=== PATIENT | male | born 1960 | race Hispanic/Latino ===

== ENCOUNTER 2019-02-21 21:59 | Inpatient (IN) | payer BC ==
--- NOTE | 2019-02-21 22:42 | Emergency Department Report ---
ED Neuro Deficit HPI - General Chief Complaint: Weakness Stated Complaint: GENERAL WEAKNESS Time Seen by Provider: 02/21/19 22:35 Source: patient, EMS Mode of arrival: Stretcher Limitations: No Limitations - History of Present Illness Initial Comments: Patient is a 58-year-old male that presents emergency room with complaints of weakness. Patient states he was unable to move his right side. Patient states he was not able to move his right arm and right leg for approximately 5 minutes. Patient states prior to the symptoms he felt weak and lightheaded. Patient states his gait was unsteady. Patient states at this time is able to move everything and his symptoms have all resolved. 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 -: Sudden Location: right arm, right leg Presenting Symptoms: Present: Weak/Paralyzed One Side History of same: No Place: work Severity: severe Quality: improving Improves With: time, rest Worsens With: none On Anticoagulants: No Context: sudden onset Associated Symptoms: weakness. denies: confusion, chest pain, cough, diaphoresis, fever/chills, headaches, loss of appetite, malise, nausea/vomiting, vertigo, seizures, shortness of breath, syncope Treatments Prior to Arrival: none - Related Data Allergies/Adverse Reactions: Allergies Allergy/AdvReac Type Severity Reaction Status Date / Time No Known Allergies Allergy Unverified 02/21/19 22:41 ED Review of Systems ROS: Stated complaint: GENERAL WEAKNESS Other details as noted in HPI Constitutional: denies: chills, fever Eyes: denies: eye pain, eye discharge, vision change ENT: denies: ear pain, throat pain Respiratory: denies: cough, shortness of breath, wheezing Cardiovascular: denies: chest pain, palpitations Endocrine: no symptoms reported Gastrointestinal: denies: abdominal pain, nausea, diarrhea Genitourinary: denies: urgency, dysuria Musculoskeletal: denies: back pain, joint swelling, arthralgia Skin: denies: rash, lesions Neurological: weakness, abnormal gait. denies: headache, paresthesias Psychiatric: denies: anxiety, depression Hematological/Lymphatic: denies: easy bleeding, easy bruising ED Past Medical Hx - Past Medical History Previous Medical History?: Yes Hx Hypertension: Yes - Surgical History Past Surgical History?: Yes Additional Surgical History: plastic surgery, amputation of middle nail - Family History Family history: no significant - Social History Smoking Status: Current Every Day Smoker Substance Use Type: None ED Neuro Physical Exam - General Limitations: No Limitations General appearance: alert, in no apparent distress Suspected Stroke: No - Head Head exam: Present: atraumatic, normocephalic - Eye Eye exam: Present: normal appearance Pupils: Present: unequal, other (left pupil 5 and right pupil 2) - ENT ENT exam: Present: mucous membranes moist - Neck Neck exam: Present: normal inspection - Respiratory Respiratory exam: Present: normal lung sounds bilaterally. Absent: respiratory distress - Cardiovascular Cardiovascular Exam: Present: regular rate, normal rhythm. Absent: systolic murmur, diastolic murmur, rubs, gallop - GI/Abdominal GI/Abdominal exam: Present: soft, normal bowel sounds - Rectal Rectal exam: Present: deferred - Extremities Exam Extremities exam: Present: normal inspection - Back Exam Back exam: Present: normal inspection - Neurological Exam Neurological exam: Present: alert, oriented X3 - Psychiatric Psychiatric exam: Present: normal affect, normal mood - Skin Skin exam: Present: warm, dry, intact, normal color. Absent: rash ED Course Vital Signs 02/21/19 02/21/19 22:10 22:20 Temperature 98.0 F 98.0 F Pulse Rate 75 75 Respiratory 12 12 Rate Blood Pressure 128/89 Blood Pressure 128/89 [Left] O2 Sat by Pulse 99 99 Oximetry - Reevaluation(s) Reevaluation #1: I discussed all results with patient. Patient is stable for discharge. Patient will be discharged home. Patient agrees with plan of care. Patient given discharge instructions. Patient voiced understanding discharge instructions. 02/22/19 01:38 - Consultations Consultation #1: I discussed case with neurologist, Dr Bell. Neurologist agrees with CT of the head along with emergent CTA of the head and neck due to the patient's symptomatology. The neurologist credit collections specialist recommends admission for further evaluation. 02/21/19 22:43 Consultation #2: Hospitalist Consult for admission. Hospitalist to admit the patient. 02/22/19 01:40 - Lab Data Result diagrams: 02/21/19 23:29 02/21/19 23:29 Lab Results 02/21/19 02/21/19 02/21/19 Range/Units 23:00 23:29 23:29 WBC 9.2 (4.5-11.0) K/mm3 RBC 5.37 H (3.65-5.03) M/mm3 Hgb 16.4 H (11.8-15.2) gm/dl Hct 48.0 H (35.5-45.6) % MCV 89 (84-94) fl MCH 31 (28-32) pg MCHC 34 (32-34) % RDW 14.3 (13.2-15.2) % Plt Count 288 (140-440) K/mm3 Lymph % (Auto) 20.7 (13.4-35.0) % [place] % (Auto) 5.7 (0.0-7.3) % Eos % (Auto) 1.8 (0.0-4.3) % Baso % (Auto) 0.5 (0.0-1.8) % Lymph # 1.9 (1.2-5.4) K/mm3 [place] # 0.5 (0.0-0.8) K/mm3 Eos # 0.2 (0.0-0.4) K/mm3 Baso # 0.0 (0.0-0.1) K/mm3 Seg Neutrophils % 71.3 H (40.0-70.0) % Seg Neutrophils # 6.6 (1.8-7.7) K/mm3 Sodium 138 (137-145) mmol/L Potassium 4.1 (3.6-5.0) mmol/L Chloride 99.3 (98-107) mmol/L Carbon Dioxide 25 (22-30) mmol/L Anion Gap 18 mmol/L BUN 19 (9-20) mg/dL Creatinine 1.2 (0.8-1.5) mg/dL Estimated GFR > 60 ml/min BUN/Creatinine Ratio 16 % Glucose 125 H (75-100) mg/dL Calcium 9.4 (8.4-10.2) mg/dL Total Bilirubin 0.30 (0.1-1.2) mg/dL AST 11 (5-40) units/L ALT 12 (7-56) units/L Alkaline Phosphatase 64 (35-129) units/L Total Creatine Kinase (55-170) units/L Troponin T (0.00-0.029) ng/mL Total Protein 7.3 (6.3-8.2) g/dL Albumin 4.1 (3.9-5) g/dL Albumin/Globulin Ratio 1.3 % Urine Color Yellow (Yellow) Urine Turbidity Clear (Clear) Urine pH 5.0 (5.0-7.0) Ur Specific [place] 1.024 (1.003-1.030) Urine Protein <15 mg/dl (Negative) mg/dL Urine Glucose (UA) Neg (Negative) mg/dL Urine Ketones Neg (Negative) mg/dL Urine Blood Lg (Negative) Urine Nitrite Neg (Negative) Urine Bilirubin Neg (Negative) Urine Urobilinogen 4.0 (<2.0) mg/dL Ur Leukocyte Esterase Neg (Negative) Urine WBC (Auto) 2.0 (0.0-6.0) /HPF Urine RBC (Auto) 8.0 (0.0-6.0) /HPF Urine Mucus 2+ /HPF 02/21/19 Range/Units 23:29 WBC (4.5-11.0) K/mm3 RBC (3.65-5.03) M/mm3 Hgb (11.8-15.2) gm/dl Hct (35.5-45.6) % MCV (84-94) fl MCH (28-32) pg MCHC (32-34) % RDW (13.2-15.2) % Plt Count (140-440) K/mm3 Lymph % (Auto) (13.4-35.0) % [place] % (Auto) (0.0-7.3) % Eos % (Auto) (0.0-4.3) % Baso % (Auto) (0.0-1.8) % Lymph # (1.2-5.4) K/mm3 [place] # (0.0-0.8) K/mm3 Eos # (0.0-0.4) K/mm3 Baso # (0.0-0.1) K/mm3 Seg Neutrophils % (40.0-70.0) % Seg Neutrophils # (1.8-7.7) K/mm3 Sodium (137-145) mmol/L Potassium (3.6-5.0) mmol/L Chloride (98-107) mmol/L Carbon Dioxide (22-30) mmol/L Anion Gap mmol/L BUN (9-20) mg/dL Creatinine (0.8-1.5) mg/dL Estimated GFR ml/min BUN/Creatinine Ratio % Glucose (75-100) mg/dL Calcium (8.4-10.2) mg/dL Total Bilirubin (0.1-1.2) mg/dL AST (5-40) units/L ALT (7-56) units/L Alkaline Phosphatase (35-129) units/L Total Creatine Kinase 89 (55-170) units/L Troponin T < 0.010 (0.00-0.029) ng/mL Total Protein (6.3-8.2) g/dL Albumin (3.9-5) g/dL Albumin/Globulin Ratio % Urine Color (Yellow) Urine Turbidity (Clear) Urine pH (5.0-7.0) Ur Specific [place] (1.003-1.030) Urine Protein (Negative) mg/dL Urine Glucose (UA) (Negative) mg/dL Urine Ketones (Negative) mg/dL Urine Blood (Negative) Urine Nitrite (Negative) Urine Bilirubin (Negative) Urine Urobilinogen (<2.0) mg/dL Ur Leukocyte Esterase (Negative) Urine WBC (Auto) (0.0-6.0) /HPF Urine RBC (Auto) (0.0-6.0) /HPF Urine Mucus /HPF - EKG Data -: EKG Interpreted by Id EKG shows normal: sinus rhythm, axis, intervals, QRS complexes, ST-T waves Rate: normal - Radiology Data Radiology results: report reviewed CT HEAD WITHOUT CONTRAST INDICATION: Right-sided weakness , dizziness, abnormal gait TECHNIQUE: All CT scans at this location are performed using CT dose reduction for ALARA by means of automated exposure control. COMPARISON: None available. FINDINGS: BRAIN: No hemorrhage or mass effect are seen. No evidence of acute infarction is noted. Focal small hypodensity in the area of the genu of the right internal capsule appears old and likely is a prior lacunar infarction. ORBITS: Left orbital bony surgical changes are seen. SOFT TISSUES OF HEAD: Normal. CALVARIUM: Left facial bony surgical changes are noted. No obvious acute bony abnormalities are seen. VISUALIZED PARANASAL SINUSES AND MASTOID AIR CELLS: Left maxillary sinus shows old deformity. Mild mucosal thickening is seen in the ethmoid air cells. Left frontal sinus is poorly developed. No air- fluid levels are seen. ADDITIONAL FINDINGS: None. IMPRESSION: No acute intracranial abnormality. NECK CT ANGIOGRAM 02/21/2019 HISTORY: Dizziness. FINDINGS: Contrast-enhanced CT angiographic images of the neck were obtained. In addition to the axial images, sagittal and coronal reformatted images were obtained. In ad dition, 3 plane MIP reconstructions were produced. Images were obtained and evaluated on an emergenc y basis. There is no evidence of abnormality. There is no evidence of carotid bifurcation stenosis. There is normal appearance to the carotid arteries. Vertebral artery contours are unremarkable. Visualized portions of the aortic arch are unremarkable. Patient has had prior cervical spine surgery, with fusion procedure at the C6-7 level. Soft tissue structures in the neck are unremarkable. IMPRESSION: No significant abnormality. NASCET like criteria were used in this evaluation. HEAD CT ANGIOGRAM HISTORY: Dizziness FINDINGS: Contrast-enhanced CT angiographic images of the intracranial circulation were obtained. In addition to the axial images, sagittal and coronal reformatted images were obtained. In addition, 3 plane MIP reconstructions were produced. Images were obtained and evaluated in the emergency basis. There is no evidence of vascular abnormality. There is no CT angiographic correlate for dizziness. There is normal vascular contours associated with anterior and posterior circulation vessels at the level of the [place] and skull base. Vertebrobasilar system is unremarkable. IMPRESSION: Negative exam. - Medical Decision Making Patient is a 58-year-old male that presents emergency room with complaints of right-sided paralysis, weakness, abnormal gait and dizziness. Patient has symptoms consistent with a TIA. Patient's paralysis resolved prior to arriving to the ER. Patient had a full stroke workup along with a neurology consult. Patient's labs and imaging negative. Patient will be admitted to the [facility] service for further neurologic workup and MRI evaluation. - Differential Diagnosis TIA. Weakness. Dehydration. Dizziness. Abnormal gait Critical Care Time: Yes Critical care attestation.: If time is entered above; I have spent that time in minutes in the direct care of this critically ill patient, excluding procedure time. Critical Care Time: 35 minutes ED Disposition Clinical Impression: TIA (transient ischemic attack), Right sided weakness, Abnormal gait, Dizziness Disposition: OP ADMIT IP TO THIS HOSP Is pt being admited?: Yes Does the pt Need Aspirin: No Condition: Critical Referrals: DANA COKER MD [Primary Care Provider] - 3-5 Days Time of Disposition: 01:38
--- NOTE | 2019-02-21 23:37 | Cat Scan Report ---
CT HEAD WITHOUT CONTRAST INDICATION: Right-sided weakness , dizziness, abnormal gait TECHNIQUE: All CT scans at this location are performed using CT dose reduction for ALARA by means of automated exposure control. COMPARISON: None available. FINDINGS: BRAIN: No hemorrhage or mass effect are seen. No evidence of acute infarction is noted. Focal small h ypodensity in the area of the genu of the right internal capsule appears old and likely is a prior la cunar infarction. ORBITS: Left orbital bony surgical changes are seen. SOFT TISSUES OF HEAD: Normal. CALVARIUM: Left facial bony surgical changes are noted. No obvious acute bony abnormalities are seen. VISUALIZED PARANASAL SINUSES AND MASTOID AIR CELLS: Left maxillary sinus shows old deformity. Mild mu cosal thickening is seen in the ethmoid air cells. Left frontal sinus is poorly developed. No air-flu id levels are seen. ADDITIONAL FINDINGS: None. IMPRESSION: No acute intracranial abnormality. Signer Name: Arturo Ch MD Signed: 02/21/2019 11:33 PM Workstation Name: [id number]
[2019-02-21 23:41] LABS: Basophils % (Auto) 0.5 % (0.0-1.8); Eosinophils # (Auto) 0.2 K/mm3 (0.0-0.4); Eosinophils % (Auto) 1.8 % (0.0-4.3); Hemoglobin 16.4 gm/dl (11.8-15.2); Lymphocytes # (Auto) 1.9 K/mm3 (1.2-5.4); Lymphocytes % (Auto) 20.7 % (13.4-35.0); Mean Corpuscular HGB Conc 34 % (32-34); Mean Corpuscular Volume 89 fl (84-94); Monocytes # (Auto) 0.5 K/mm3 (0.0-0.8); Monocytes % (Auto) 5.7 % (0.0-7.3); Platelet Count 288 K/mm3 (140-440); Red Blood Count 5.37 M/mm3 (3.65-5.03); Red Cell Distribution Width 14.3 % (13.2-15.2)
[2019-02-21 23:46] LABS: Bilirubin,Urine NEG (Negative); Blood,Urine LG (Negative); Color,Urine Yellow (Yellow); Mucus,Urine 2+ /HPF; Protein,Urine <15 mg/dL mg/dL (Negative)
[2019-02-21 23:59] LABS: Alanine Aminotransferase 12 units/L (7-56); Albumin 4.1 g/dL (3.9-5); BUN/Creatinine Ratio 16; Blood Urea Nitrogen 19 mg/dL (9-20); Calcium 9.4 mg/dL (8.4-10.2); Hemolysis Index 10
--- NOTE | 2019-02-22 01:00 | Cat Scan Report ---
NECK CT ANGIOGRAM 02/21/2019 HISTORY: Dizziness. FINDINGS: Contrast-enhanced CT angiographic images of the neck were obtained. In addition to the axia l images, sagittal and coronal reformatted images were obtained. In addition, 3 plane MIP reconstruct ions were produced. Images were obtained and evaluated on an emergency basis. There is no evidence of abnormality. There is no evidence of carotid bifurcation stenosis. There is normal appearance to the carotid arter ies. Vertebral artery contours are unremarkable. Visualized portions of the aortic arch are unremarkable. Patient has had prior cervical spine surgery, with fusion procedure at the C6-7 level. Soft tissue structures in the neck are unremarkable. IMPRESSION: No significant abnormality. \ NASCET like criteria were used in this evaluation. All CT scans at this location are performed using dose reduction to ALARA by means of automated expos ure control. Signer Name: Iggy Winslow MD Signed: 02/22/2019 12:55 AM Workstation Name: [id number]
--- NOTE | 2019-02-22 01:04 | Cat Scan Report ---
HEAD CT ANGIOGRAM HISTORY: Dizziness FINDINGS: Contrast-enhanced CT angiographic images of the intracranial circulation were obtained. In addition to the axial images, sagittal and coronal reformatted images were obtained. In addition, 3 p mell MIP reconstructions were produced. Images were obtained and evaluated in the emergency basis. There is no evidence of vascular abnormality. There is no CT angiographic correlate for dizziness. There is normal vascular contours associated with anterior and posterior circulation vessels at the l evel of the [place] and skull base. Vertebrobasilar system is unremarkable. IMPRESSION: Negative exam. All CT scans at this location are performed using dose reduction to ALARA by means of automated expos ure control. Signer Name: Iggy Winslow MD Signed: 02/22/2019 12:59 AM Workstation Name: [id number]
[2019-02-22] MEDS ORDERED: ZOFRAN IV PRN (02:14)
[2019-02-22] MEDS ORDERED: TYLENOL PO PRN (02:14)
--- NOTE | 2019-02-22 03:49 | XRay Report ---
CHEST 2 VIEWS 2306 INDICATION / CLINICAL INFORMATION: Weakness. COMPARISON: None available. FINDINGS: SUPPORT DEVICES: None. HEART / MEDIASTINUM: No significant abnormality. LUNGS / PLEURA: No significant pulmonary or pleural abnormality. No pneumothorax. ADDITIONAL FINDINGS: No significant additional findings. IMPRESSION: No significant acute abnormality Signer Name: Arturo Ch MD Signed: 02/22/2019 3:45 AM Workstation Name: [id number]
[2019-02-22 07:59] LABS: Creatine Kinase MB 1.3 ng/mL (0.0-4.0)
--- NOTE | 2019-02-22 09:15 | History and Physical Report ---
CHIEF COMPLAINT: Weakness. Other complaint include dizziness and unsteady gait. HISTORY OF PRESENT ILLNESS: The patient is a 58-year-old male who said he was feeling generally weak with dizziness and then developed weakness with inability to move the right upper and right lower extremity for about 5 minutes. There was also history of associated unsteady gait. By the time the patient arrived at the Emergency Room, he said that his symptoms of right-sided weakness has resolved. There was no history of chest pain, no history of shortness of breath, nausea or vomiting. Also, the patient denied history of vertigo. PAST MEDICAL HISTORY: Only pertinent for hypertension. 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 PAST SURGICAL HISTORY: Pertinent for left eye surgery and amputation of middle finger nail. FAMILY HISTORY: Noncontributory. SOCIAL HISTORY: The patient smokes cigarettes, does not use illicit drugs and it is not clear whether the patient drinks alcohol. MEDICATIONS: The patient's home medication is lisinopril, dose and frequency unknown. ALLERGIES: There are no known drug allergies. REVIEW OF SYSTEMS: CONSTITUTIONAL: There is no fever, no chills, no diaphoresis. HEENT: There is no headache or sore throat. CARDIOVASCULAR SYSTEM: There is no chest pain or orthopnea. RESPIRATORY SYSTEM: There is no shortness of breath or cough. GASTROINTESTINAL SYSTEM: There is no nausea, no vomiting, no abdominal pain, diarrhea or constipation. NEUROLOGICAL SYSTEM: Dizziness present. Unsteady gait present. Weakness of the right upper and right lower extremity noted. Generalized weakness noted. No altered mental status and no numbness. MUSCULOSKELETAL SYSTEM: There is no joint pain or swelling. DERMATOLOGICAL SYSTEM: There is no skin rash or itching. GENITOURINARY SYSTEM: There is no dysuria, hematuria, or flank pain. Rest of system review is normal. PHYSICAL EXAMINATION: GENERAL: At the time of exam, the patient was found to be alert, oriented x 3 and not in acute distress. VITAL SIGNS: Shows temperature of 98 degrees Fahrenheit, pulse of 75, respirations 12, blood pressure 128/89, O2 sat of 99% on room air. HEENT: Showed left pupil to be bigger than the right. Extraocular muscles are intact. NECK: Supple with no JVD or carotid bruit. CARDIOVASCULAR SYSTEM: Showed normal first and second heart sounds with no gallops or murmurs. RESPIRATORY SYSTEM: Showed good air entry on both sides of the lungs with no abnormal breath sounds. GASTROINTESTINAL SYSTEM: Showed abdomen to be full, soft, nontender with no organomegaly or rigidity. NEUROLOGIC: Showed no focal deficits. MUSCULOSKELETAL SYSTEM: Showed no joint swelling or tenderness. DERMATOLOGICAL SYSTEM: Showed no skin rash. GENITOURINARY SYSTEM: Showing no costovertebral angle tenderness. PERTINENT LABORATORY AND IMAGING STUDIES: The patient had CT of the head without contrast done that shows no acute intracranial abnormality. Also, the patient has CT angiogram of the head and neck done that was normal. The patient also had chest x-ray done that came back normal. LAB RESULTS: The patient's CBC showed normal white count, elevated hemoglobin of 16.4 and elevated hematocrit of 48 with CBC differential being unremarkable except for slight increase in segmented neutrophil count of 71.3%. The patient's chemistry was unremarkable. Urinalysis came back normal. DIAGNOSES: 1. Transient ischemic attack. 2. Dizziness. 3. Unsteady gait. PLAN OF CARE: 1. The patient will be admitted to telemetry. 2. The patient will have MRI of the brain without contrast done this morning and will also have bilateral carotid Doppler done this morning. 3. The patient will have 2D echo done this morning with the on-call soap tender to read. 4. The patient will have cardiac enzymes involving troponin, total CK, and CK-MB checked q. 6 hours serially x 2 levels. 5. The patient will have Neurology consult with Dr. Allen if available this morning. 6. The patient will be on daily aspirin 325 mg by mouth and will also be on Tylenol 650 mg by mouth every 4 hours for fever and headache. 7. The patient will be on Zofran 4 mg IV every 8 hours for nausea and vomiting. 8. The patient's home medication, which is lisinopril, will be started when the dose is known, starting today 02/22/2019. 9. The patient will be on low sodium diet after passing the swallow test for management of his high blood pressure. JOB# [id number] OCN/NTS
[2019-02-22] MEDS: ASPIRIN PO SCH (09:27)
[2019-02-22] MEDS: ZESTRIL PO SCH (09:27)
[2019-02-22 12:34] LABS: Creatine Kinase MB 1.3 ng/mL (0.0-4.0)
--- NOTE | 2019-02-22 12:35 | Progress Note ---
Subjective Date of service: 02/22/19 Interval history: SEE MY DICTATED NOTE ON THIS PATIENT HE IS STABLE AND WITHOUT ANY FOCAL FINDINGS CHECKED CT AND CTA BOTH VERY NORMAL FULL NOTE DICTATED Objective - Vital Sign Vital Signs - 12hr 02/22/19 02/22/19 02/22/19 01:30 02:00 02:30 Temperature Pulse Rate 61 63 59 L Respiratory 11 L 16 19 Rate Blood Pressure 108/75 124/82 128/80 O2 Sat by Pulse 98 99 97 Oximetry 02/22/19 02/22/19 02/22/19 03:00 03:30 04:00 Temperature Pulse Rate 58 L 67 62 Respiratory 14 15 15 Rate Blood Pressure 112/68 123/80 107/69 O2 Sat by Pulse 96 98 93 Oximetry 02/22/19 02/22/19 02/22/19 04:40 05:45 06:04 Temperature 97.8 F Pulse Rate 59 L 110 H 58 L Respiratory 18 10 L Rate Blood Pressure 116/71 109/73 O2 Sat by Pulse 94 Oximetry 02/22/19 02/22/19 07:44 10:00 Temperature 98.3 F Pulse Rate 55 L 59 L Respiratory 12 Rate Blood Pressure 105/68 O2 Sat by Pulse 96 Oximetry - Laboratory Findings CBC and BMP: 02/21/19 23:29 02/21/19 23:29 Abnormal Lab Findings: Abnormal Labs 02/21/19 02/21/19 23:29 23:29 RBC 5.37 H Hgb 16.4 H Hct 48.0 H Seg Neutrophils % 71.3 H Glucose 125 H
--- NOTE | 2019-02-22 15:37 | Progress Note ---
Assessment and Plan Assessment and plan: CVA/TIA. Pt with ataxia and right sided weakness that has resolved. Cont secondary prevention with ASA and statin. CT and CTA WNL. F/U ECHO. Ataxia. as above. Resolved Disposition. Likely D/c in am History Interval history: no new issues Hospitalist Physical - Constitutional Vitals: Temp Pulse Resp BP Pulse Ox 98.5 F 61 18 119/77 95 02/22/19 12:34 02/22/19 12:34 02/22/19 12:34 02/22/19 12:34 02/22/19 12:34 General appearance: Present: no acute distress, well-nourished - EENT Eyes: Present: PERRL, EOM intact ENT: hearing intact, clear oral mucosa, dentition normal - Neck Neck: Present: supple, normal ROM - Respiratory Respiratory effort: normal Respiratory: bilateral: CTA - Cardiovascular Rhythm: regular Heart Sounds: Present: S1 & S2. Absent: gallop, rub - Extremities Extremities: no ischemia, No edema, Full ROM - Abdominal General gastrointestinal: soft, non-tender, non-distended, normal bowel sounds - Integumentary Integumentary: Present: clear, warm, dry - Neurologic Neurologic: CNII-XII intact, moves all extremities Results - Labs CBC & Chem 7: 02/21/19 23:29 02/21/19 23:29 Labs: Laboratory Last Values WBC 9.2 K/mm3 (4.5-11.0) 02/21/19 23:29 RBC 5.37 M/mm3 (3.65-5.03) H 02/21/19 23:29 Hgb 16.4 gm/dl (11.8-15.2) H 02/21/19 23:29 Hct 48.0 % (35.5-45.6) H 02/21/19 23:29 MCV 89 fl (84-94) 02/21/19 23:29 MCH 31 pg (28-32) 02/21/19 23:29 MCHC 34 % (32-34) 02/21/19 23:29 RDW 14.3 % (13.2-15.2) 02/21/19 23:29 Plt Count 288 K/mm3 (140-440) 02/21/19 23:29 Lymph % (Auto) 20.7 % (13.4-35.0) 02/21/19 23:29 Randall % (Auto) 5.7 % (0.0-7.3) 02/21/19 23: Eos % (Auto) 1.8 % (0.0-4.3) 02/21/19 23:29 Baso % (Auto) 0.5 % (0.0-1.8) 02/21/19 23: Lymph # 1.9 K/mm3 (1.2-5.4) 02/21/19 23: Randall # 0.5 K/mm3 (0.0-0.8) 02/21/19 23: Eos # 0.2 K/mm3 (0.0-0.4) 02/21/19: Baso # 0.0 K/mm3 (0.0-0.1) 02/21/19 23: Seg Neutrophils % 71.3 % (40.0-70.0) H 02/21/19 23:29 Seg Neutrophils # 6.6 K/mm3 (1.8-7.7) 02/21/19 23:29 Sodium 138 mmol/L (137-145) 02/21/19 23:29 Potassium 4.1 mmol/L (3.6-5.0) 02/21/19 23:29 Chloride 99.3 mmol/L (98-107) 02/21/19 23:29 Carbon Dioxide 25 mmol/L (22-30) 02/21/19 23:29 18 mmol/L 02/21/19 23:29 BUN 19 mg/dL (9-20) 02/21/19 23:29 1.2 mg/dL (0.8-1.5) 02/21/19 23:29 Estimated GFR > 60 ml/min 02/21/19 23:29 16 % 02/21/19 23:29 Glucose 125 mg/dL (75-100) H 02/21/19 23:29 Calcium 9.4 mg/dL (8.4-10.2) 02/21/19 23:29 0.30 mg/dL (0.1-1.2) 02/21/19 23:29 AST 11 units/L (5-40) 02/21/19 23: ALT 12 units/L (7-56) 02/21/19 23:29 64 units/L (35-129) 02/21/19 23:29 78 units/L (55-170) 02/22/19 11:56 CK-MB (CK-2) 1.3 ng/mL (0.0-4.0) 02/22/19 11:56 CK-MB (CK-2) Rel Index 1.6 (0-4) 02/22/19 11:56 < 0.010 ng/mL (0.00-0.029) 02/22/19 11:56 7.3 g/dL (6.3-8.2) 02/21/19 23:29 4.1 g/dL (3.9-5) 02/21/19 23:29 1.3 % 02/21/19 23:29 Yellow (Yellow) 02/21/19 23:00 Clear (Clear) 02/21/19 23:00 5.0 (5.0-7.0) 02/21/19 23:00 Ur Specific [place] 1.024 (1.003-1.030) 02/21/19 23:00 <15 mg/dl mg/dL (Negative) 02/21/19 23:00 Neg mg/dL (Negative) 02/21/19 23:00 Neg mg/dL (Negative) 02/21/19 23:00 Lg (Negative) 02/21/19 23:00 Neg (Negative) 02/21/19 23:00 Neg (Negative) 02/21/19 23:00 4.0 mg/dL (<2.0) 02/21/19 23:00 Ur Leukocyte Esterase Neg (Negative) 02/21/19 23:00 2.0 /HPF (0.0-6.0) 02/21/19 23:00 8.0 /HPF (0.0-6.0) 02/21/19 23:00 2+ /HPF 02/21/19 23:00 Active Medications - Current Medications Current Medications: Generic Name Dose Route Start Last Admin Trade Name Freq PRN Reason Stop Dose Admin Acetaminophen 650 mg 02/22/19 02:14 Tylenol PO Q4H PRN Headache Aspirin 325 mg 02/22/19 10:00 02/22/19 09:27 Aspirin PO 325 mg QDAY SANDEEP Administration Lisinopril 20 mg 02/22/19 10:00 02/22/19 09:27 Zestril PO 20 mg QDAY SANDEEP Administration Ondansetron HCl 4 mg 02/22/19 02:14 Zofran IV Q8H PRN Nausea And Vomiting
--- NOTE | 2019-02-22 17:17 | Vascular Lab Report ---
VL carotid duplex BILAT INDICATION / CLINICAL INFORMATION: TIA AND ABNORMAL GAIT. COMPARISON: None available. FINDINGS: Minimal plaque formation at the bifurcations. Velocity measurements and waveform analysis indicate le ss than 50% stenosis of each internal carotid artery, according to Nascet criteria. Normal antegrade flow is demonstrated in both vertebral arteries. IMPRESSION: 1. No significant stenosis. Signer Name: Jorge Gamez MD Signed: 02/22/2019 5:12 PM Workstation Name: [id number]
--- NOTE | 2019-02-23 01:18 | Consultation ---
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 He was apparently traveling with his son, who is working with him and he apparently became acutely ill. He was brought to the Emergency Room where CT scan of the head was obtained, which did not show any focal changes. He underwent a CTA of the head and was a negative exam and he also underwent a CTA of the neck. The patient did not have any significant abnormalities. There were no atherosclerotic changes of significant nature. No evidence of carotid stenosis. He has normal appearance of the carotid arteries. The patient was assessed and had laboratory testing. The patient's hematocrit was 48. His white blood count is 9200. His glucose was 125. Remainder of the electrolytes and urinalysis was unremarkable. On viewing his CT scan of the head, which I had the opportunity to review and he was noted to have normal-appearing ventricular system, fourth ventricle is normal, frontal lobes are normal. Pineal gland is in the midline. Apparent villalobos and white matter are otherwise unremarkable. No white matter changes are present. The appearance of the ventricular system is normal. No evidence of any focal abnormalities are present with the brainstem to account for the patient's stated symptoms of dizziness. PHYSICAL EXAMINATION: NECK: Supple. NEUROLOGIC: He is fully alert, appropriate. Speech is clear. Ocular movements are full. No seizure activity is present. I do not notice any nystagmus. Office Manager strength is normal. Motor tone symmetrical. IMPRESSION: This patient's symptoms strongly suggest that he had a transient ischemic attack, but as I am reviewing his testing, I see very little to support this. I did note that he has had a chest x-ray also which is not significant. Possibility of cardiac arrhythmia triggering this should be of course considered. He is currently undergoing a carotid echocardiogram and carotid ultrasound, both of which interpretations are pending, which I plan to go further. I plan to follow the patient with you. I would suggest at best he had a transient ischemic attack. I do not see any laboratory evidence to suggest that this is due to electrolyte imbalance. Curiously, I do not see much in the way of atherosclerosis, but we do not have cholesterol back yet and this will be interesting to review. Neurologically, the patient is entirely stable. JOB# [id number] FORTINO/THUAN
[2019-02-23 05:46] VITALS: BP 110/69
--- NOTE | 2019-02-23 07:51 | Discharge Summary ---
Providers - Providers Date of Admission: 02/22/19 02:06 Date of discharge: 02/23/19 Attending physician: JUDITH GARCIA 02/22/19 06:00 Consult to Physician [CONS] Routine Comment: Consulting Provider: KLARISSA RAMIREZ Physician Instructions: Reason For Exam: TIA AND ABNORMAL GAIT Primary care physician: [facility], Hospitalization Reason for admission: CVA/TIA Condition: Critical Hospital course: Patient is a 58-year-old male that presents emergency room with complaints of weakness. Patient stated he was not able to move his right arm and right leg for approximately 5 minutes. Patient stated prior to the symptoms he felt weak and lightheaded. He also reported his gait was unsteady. Patient stated that after arrival to the emergency room he was able to move everything and his symptoms resolved. The patient was admitted with diagnosis of CVA/TIA. The patient underwent CT scan and CTA which was found to be within normal limits. Right ultrasound revealed no significant stenosis. Echocardiogram was completed and will be followed up as an outpatient. Neurology saw the patient and felt patient could be discharged. Patient is to follow-up with neurology as an outpatient. Patient will receive treatment for secondary prevention with aspirin and statin. Dedicated discharge time 32 minutes. Disposition: [id number] TO HOME OR SELFCARE Time spent for discharge: 32 - Discharge Diagnoses (1) Dizziness Status: Acute (2) Right sided weakness Status: Acute (3) TIA (transient ischemic attack) Status: Acute Core Measure Documentation - Palliative Care Palliative Care/ Comfort Measures: Not Applicable - Core Measures Any of the following diagnoses?: none Exam - Constitutional Vitals: Temp Pulse Resp BP Pulse Ox 98.6 F 56 L 20 110/69 96 02/22/19 19:54 02/23/19 04:52 02/23/19 04:52 02/23/19 04:52 02/23/19 04:52 General appearance: Present: no acute distress, well-nourished - EENT Eyes: Present: PERRL ENT: hearing intact, clear oral mucosa - Neck Neck: Present: supple, normal ROM - Respiratory Respiratory effort: normal Respiratory: bilateral: CTA - Cardiovascular Heart Sounds: Present: S1 & S2. Absent: rub, click - Extremities Extremities: pulses symmetrical, No edema Peripheral Pulses: within normal limits - Abdominal General gastrointestinal: Present: soft, non-tender, non-distended, normal bowel sounds Male genitourinary: Present: normal - Integumentary Integumentary: Present: clear, warm, dry - Musculoskeletal Musculoskeletal: gait normal, strength equal bilaterally - Psychiatric Psychiatric: appropriate mood/affect, intact judgment & insight - Neurologic Neurologic: CNII-XII intact, moves all extremities Plan Activity: advance as tolerated Weight Bearing Status: Weight Bear as Tolerated Diet: low fat, low cholesterol, low salt Follow up with: KAVEH MUELLERSAN RAFAEL MD MIRZA [Primary Care Provider] - 3-5 Days KLARISSA RAMIREZ MD [Staff Physician] - 7 Days Prescriptions: Aspirin 325 mg PO QDAY #30 tablet AtorvaSTATin [Lipitor] 40 mg PO QHS #30 tab Lisinopril [Zestril TAB] 20 mg PO QDAY #30 tablet
[2019-02-23] MEDS: ASPIRIN PO SCH (09:54)
[2019-02-23] MEDS: ZESTRIL PO SCH (09:54)
--- NOTE | 2019-02-23 11:31 | Progress Note ---
Subjective Date of service: 02/23/19 Interval history: SEE MY WORK UP THE PATIENT MAY BE DISCHARGED AND FOLLOW UP IN OFFICE ETIOLOGY OF SPELL YET TO BE DETERMINED THERE IS NO SOLID EVIDENCE OF STROKE OR TIA IMO Objective - Vital Sign Vital Signs - 12hr 02/23/19 02/23/19 00:06 04:52 Pulse Rate 56 L 56 L Respiratory 20 20 Rate Blood Pressure 114/62 110/69 O2 Sat by Pulse 93 96 Oximetry - Laboratory Findings CBC and BMP: 02/21/19 23:29 02/21/19 23:29 Abnormal Lab Findings: Abnormal Labs 02/21/19 02/21/19 23:29 23:29 RBC 5.37 H Hgb 16.4 H Hct 48.0 H Seg Neutrophils % 71.3 H Glucose 125 H
== END 2019-02-23 12:17 | disposition home or self-care (01) | DRG 69 ==
LOC: ED 21:59 → 4A 02-22 02:06
PROVIDERS: ADMIT Internal Medicine; ATTEND Hospitalist
DX: G45.9 Transient cerebral ischemic attack, unspecified (principal); R26.9 Unspecified abnormalities of gait and mobility; I10 Essential (primary) hypertension; F17.210 Nicotine dependence, cigarettes, uncomplicated; Z89.029 Acquired absence of unspecified finger(s)
CPT/HCPCS: 36415; 70450; 70496; 70498; 71046; 80053; 81001; 82550; 82553; 84484; 85025; 93005; 93010; 93306; 93880; G0378; Q9967